=== PATIENT | male | born 1970 | race African-American/Black ===

== ENCOUNTER 2016-11-21 07:43 | Emergency (ER) | payer SELFPAY ==
[~2016-11-21] VITALS: Ht 175.3 cm; Wt 122.5 kg
[2016-11-21 07:54] VITALS: BP 176/82
--- NOTE | 2016-11-21 07:58 | PHYS DOC ---
Adult General Chief Complaint Chief Complaint: HAND PROBLEM HPI HPI Patient is a 46 year old male who presents with moderate left hand pain that began yesterday after he fell. Patient denies any loss of consciousness. Review of Systems Review of Systems Constitutional: Denies fever or chills [] Eyes: Denies change in visual acuity, redness, or eye pain [] Musculoskeletal: Left hand pain Integument: Denies rash or skin lesions [] Neurologic: Denies headache, focal weakness or sensory changes [] Endocrine: Denies polyuria or polydipsia [] Current Medications Current Medications Current Medications Medications (Trade) Dose Ordered Sig/Antonina Start Time Stop Time Status Last Admin Dose Admin Acetaminophen/ Hydrocodone Bitart (Lortab 5/325) 2 tab 1X ONCE 11/21/16 08:00 11/21/16 08:02 DC 11/21/16 08:13 2 TAB Naproxen (Naprosyn) 500 mg 1X STAT 11/21/16 08:02 11/21/16 08:03 DC 11/21/16 08:13 500 MG Allergies Allergies Allergies Coded Allergies Type Severity Reaction Last Updated Verified Penicillins Allergy Mild Swelling 11/21/16 Yes Physical Exam Physical Exam Constitutional: Well developed, well nourished, no acute distress, non-toxic appearance. [] Skin: Warm, dry, no erythema, no rash. [] Back: No tenderness, no CVA tenderness. [] Extremities: Left hand with no obvious deformity mild amount of soft tissue swelling noted along the left hand and wrist. Tenderness on palpation along the left first metacarpal. Limited range of motion to the left hand especially dorsiflexion. Full range of motion to the left fingers. Adequate ulna medial and radial sensation to the left hand. +2 left radial pulse. Cap refill less than 2 seconds the left upper extremity. Sensation intact to the left upper extremity. Neurologic: Alert and oriented X 3, normal motor function, normal sensory function, no focal deficits noted. [] Psychologic: Affect normal, judgement normal, mood normal. [] Current Patient Data Vital Signs Vital Signs Date Time Temp Pulse Resp B/P Pulse Ox O2 Delivery O2 Flow Rate FiO2 11/21/16 07:54 98.6 69 18 99 Room Air 98.6 EKG EKG [] Radiology/Procedures Radiology/Procedures [] Course & Med Decision Making Course & Med Decision Making Pertinent Labs and Imaging studies reviewed. (See chart for details) Patient is in the ED left hand pain after falling yesterday. Left hand x-rays interpreted by radiologist are negative for any acute findings. Patient probably sprained his left hand. Patient was placed in a thumb spica by the Ed RN, neurovascular exam done by me is normal. Cap refill less than 2 seconds. Patient was discharged with instructions to follow-up with orthopedic doctor. Ice elevation encouraged. Naproxen for pain. Dragon Disclaimer Dragon Disclaimer This electronic medical record was generated, in whole or in part, using a voice recognition dictation system. Departure Departure Impression: Primary Impression: Fall from standing Additional Impression: Sprain of left hand Disposition: HOME, SELF-CARE Condition: STABLE Referrals: ELTON IBRAHIM MD Follow-up with the provided orthopedic doctor in one week if pain continues Patient Instructions: Fall Prevention and Home Safety Additional Instructions: You were seen for left hand sprain after falling. Please ice and elevate the extremity. Wear the splint as tolerated. Follow-up with the provided orthopedic doctor in one week if pain continues. Take the prescribed medicines as needed for pain. Scripts Hydrocodone/Apap 5-325 (Brundidge 5-325 Tablet)1 Each Tablet1-2 Tab PO Q4-6HRS #10 TAB Prov:CHAIM MCCARTNEY APRN 11/21/16 Naproxen 500 Mg Tablet.dr1 Tab PO BID #60 TAB Ref 2 Prov:CHAIM MCCARTNEY APRN 11/21/16 Problem Qualifiers Primary Impression: Fall from standing Encounter type: initial encounter Qualified Code: W19.XXXA - Unspecified fall, initial encounter Additional Impression: Sprain of left hand Encounter type: initial encounter Qualified Code: S63.92XA - Sprain of unspecified part of left wrist and hand, initial encounter CHAIM MCCARTNEY APRN Nov 21, 2016 07:58
[2016-11-21] MEDS ORDERED: HYDROCODONE/APAP 5/325MG TABLET. PO ONE (08:00)
[2016-11-21] MEDS ORDERED: NAPROXEN 500 MG TABLET PO STA (08:02)
--- NOTE | 2016-11-21 08:17 | RAD ---
Three-view left hand radiographs 11/21/2016 Clinical history: Patient fell backwards while mowing grass onto the left hand with left hand pain and swelling. AP, lateral and oblique digital radiographs of the left hand were obtained. No fracture or dislocation of the left hand is seen. Mild to moderate degenerative changes are seen throughout the interphalangeal joints of the left hand. Moderate to severe degenerative changes are seen involving the first carpometacarpal joint. Impression: No acute fracture or dislocation of the left hand is seen.
[2016-11-21] MEDS ORDERED: NAPR500T8 PO (08:37)
[2016-11-21] MEDS ORDERED: HYDR-971 PO (08:37)
== END 2016-11-21 08:40 | disposition home or self-care (01) ==
LOC: ER 07:43
DX: S63.92XA Sprain of unspecified part of left wrist and hand, initial encounter (principal); Z88.0 Allergy status to penicillin; W18.39XA Other fall on same level, initial encounter; Y93.89 Activity, other specified; Y99.9 Unspecified external cause status; Y92.89 Other specified places as the place of occurrence of the external cause
CPT/HCPCS: 29125; 73130; 99284-25

== ENCOUNTER 2017-05-17 13:59 | Emergency (ER) | payer SELFPAY ==
[~2017-05-17] VITALS: Ht 175.3 cm; Wt 108.9 kg
[~2017-05-17 13:59] MED LIST: HYDR-971 PO; NAPR500T8 PO
[2017-05-17 14:09] VITALS: BP 163/104
--- NOTE | 2017-05-17 14:23 | PHYS DOC ---
Past Medical History Past Medical History: No Pertinent History Past Surgical History: No Surgical History Alcohol Use: None Drug Use: None Adult General Chief Complaint Chief Complaint: SHOULDER INJURY HPI HPI Patient is a 46 year old male presents emergency department stating that he fell from a rock yesterday from a standing position and landed on his left shoulder. He states that he is having left shoulder pain and discomfort as well as left upper back pain and discomfort. He denies any loss of consciousness however he does state that he has decreased range of motion of the left shoulder. Peripheral pulses are 2+ cap refill is less than 2 seconds. Patient with equal strength in sr. director noted bilaterally. Patient states that he has taken ibuprofen at 4:00 this morning. He had a pain patch with lidocaine placed on the area last night. Review of Systems Review of Systems Constitutional: Denies fever or chills [] Eyes: Denies change in visual acuity, redness, or eye pain [] HENT: Denies nasal congestion or sore throat [] Respiratory: Denies cough or shortness of breath [] Cardiovascular: No additional information not addressed in HPI [] GI: Denies abdominal pain, nausea, vomiting, bloody stools or diarrhea [] : Denies dysuria or hematuria [] Musculoskeletal: Left upper back pain. Left shoulder pain and discomfort Integument: Denies rash or skin lesions [] Neurologic: Denies headache, focal weakness or sensory changes [] Endocrine: Denies polyuria or polydipsia [] Current Medications Current Medications Current Medications Medications (Trade) Dose Ordered Sig/[facility] Start Time Stop Time Status Last Admin Dose Admin Cyclobenzaprine HCl (Flexeril) 10 mg 1X ONCE 05/17/17 14:30 05/17/17 14:31 DC 05/17/17 14:30 10 MG Ibuprofen (Motrin) 800 mg 1X ONCE 05/17/17 14:30 05/17/17 14:31 DC 05/17/17 14:30 800 MG Allergies Allergies Allergies Coded Allergies Type Severity Reaction Last Updated Verified Penicillins Allergy Mild Swelling 11/21/16 Yes Physical Exam Physical Exam Constitutional: Well developed, well nourished, no acute distress, non-toxic appearance. [] HENT: Normocephalic, atraumatic, bilateral external ears normal, oropharynx moist, no oral exudates, nose normal. [] Eyes: PERRLA, EOMI, conjunctiva normal, no discharge. [] Neck: Normal range of motion, no tenderness, supple, no stridor. [] Cardiovascular:Heart rate regular rhythm, no murmur [] Lungs & Thorax: Bilateral breath sounds clear to auscultation [] Abdomen: Bowel sounds normal, soft, no tenderness, no masses, no pulsatile masses. [] Skin: Warm, dry, no erythema, no rash. [] Back: No cervical spine, thoracic spine tenderness, no crepitus deformities or step-offs noted. Patient did have nerve tenderness on the left upper back area. Extremities: Left shoulder tenderness, no cyanosis, no clubbing, ROM intact, no edema. Decreased range of motion noted to the left arm and shoulder area. Peripheral pulses are 2+ cap refill brisk less than 2 seconds. Equal sr. director and strength noted bilaterally. Neurologic: Alert and oriented X 3, normal motor function, normal sensory function, no focal deficits noted. [] Psychologic: Affect normal, judgement normal, mood normal. [] Current Patient Data Vital Signs Vital Signs Date Time Temp Pulse Resp B/P (MAP) Pulse Ox O2 Delivery O2 Flow Rate FiO2 05/17/17 14:09 98.0 65 18 97 Room Air 98.0 EKG EKG [] Radiology/Procedures Radiology/Procedures [][facility] [address] [place] [address] IMAGING REPORT Signed PATIENT: CECILIA BRIDGES ACCOUNT: [id number] : 1970 LOCATION: ER AGE: 46 SEX: M EXAM [id number] STATUS: REG ER ORD. PHYSICIAN: TAO POST APRN REASON: fall pain to left shoulder PROCEDURE: HUMERUS LEFT; SHOULDER 2+V LEFT Left shoulder, 3 views, 05/17/2017: History: Fall, pain No fracture or dislocation is identified. There are mild sclerotic and cystic changes at rotator cuff insertion sites on the greater tuberosity on a degenerative basis. The periarticular soft tissues are unremarkable. IMPRESSION: No acute left shoulder abnormality is detected. Left humerus, 2 views, 05/17/2017: No fracture or dislocation is identified. IMPRESSION: No acute left humeral abnormality is detected. DICTATED and SIGNED BY: ELAINE RUSH MD DATE: 05/17/17 1544 CC: TAO POST APRN; NO PCP; NON,STAFF ~ Course & Med Decision Making Course & Med Decision Making Pertinent Labs and Imaging studies reviewed. (See chart for details) Patient provided with ibuprofen and Flexeril here in the emergency department. Patient does have at the bedside. X-rays negative per radiology. Patient will be discharged home with flexeril and naproxen. Recommended to use ice packs on 20 minutes and off 20 minutes several times a day. Flexeril will cause drowsiness do not take if you need to be alert and oriented. Followup with orthopedic or primary care provider in 3-5 days. Signs and symptoms to return to the emergency department has been provided. Patient agrees with discharge instructions, treatment regimen and followup recommendations. All questions and concerns have been answered at patients bedside. [] Dragon Disclaimer Dragon Disclaimer This electronic medical record was generated, in whole or in part, using a voice recognition dictation system. Departure Departure Impression: Primary Impression: Left shoulder pain Additional Impression: Upper back pain on left side Disposition: 01 HOME, SELF-CARE Condition: STABLE Referrals: NO PCP (PCP) Patient Instructions: Back Pain, Adult, [id number], Shoulder Pain, Easy-to- Read Additional Instructions: Activity as tolerated Medication as prescribed Flexeril will cause drowsiness do not take if you need to be alert and oriented. Ice packs on 20 minutes and off 20 minutes several times a day Followup with your orthopedic or primary care provider in 5-7 days Return to emergency department as needed for signs and symptoms that become worse. Scripts Naproxen (NAPROXEN) 500 Mg Tablet 1 TAB PO BID, #60 TAB Prov: TAO POST APRN 05/17/17 Cyclobenzaprine Hcl (CYCLOBENZAPRINE HCL) 10 Mg Tablet 1 TAB PO TID Y for MUSCLE SPASMS, #30 TAB Prov: TAO POST APRN 05/17/17 Problem Qualifiers Primary Impression: Left shoulder pain Chronicity: unspecified Qualified Codes: M25.512 - Pain in left shoulder TAO POST APRN May 17, 2017 14:23
[2017-05-17] MEDS ORDERED: IBUPROFEN 800 MG TABLET. PO ONE (14:30)
[2017-05-17] MEDS ORDERED: CYCLOBENZAPRINE 10 MG TABLET. PO ONE (14:30)
[2017-05-17] MEDS ORDERED: CYCL10TA2 PO (15:38)
[2017-05-17] MEDS ORDERED: NAPR500T4 PO (15:40)
--- NOTE | 2017-05-17 15:48 | RAD ---
Left shoulder, 3 views, 05/17/2017: History: Fall, pain No fracture or dislocation is identified. There are mild sclerotic and cystic changes at rotator cuff insertion sites on the greater tuberosity on a degenerative basis. The periarticular soft tissues are unremarkable. IMPRESSION: No acute left shoulder abnormality is detected. Left humerus, 2 views, 05/17/2017: No fracture or dislocation is identified. IMPRESSION: No acute left humeral abnormality is detected.
== END 2017-05-17 15:55 | disposition home or self-care (01) ==
LOC: ER 13:59
DX: M25.512 Pain in left shoulder (principal); M54.6 Pain in thoracic spine; Z88.0 Allergy status to penicillin; W18.39XA Other fall on same level, initial encounter; Y93.89 Activity, other specified; Y92.89 Other specified places as the place of occurrence of the external cause; Y99.8 Other external cause status
CPT/HCPCS: 73030; 73060; 99284

== ENCOUNTER 2019-04-18 12:39 | Emergency (ER) | payer SELFPAY ==
[~2019-04-18] VITALS: Ht 175.3 cm; Wt 120.7 kg
[~2019-04-18 12:39] MED LIST changes: +CYCL10TA2 PO; +HYDR-3164 PO; -HYDR-971 PO; +NAPR-514 PO
[2019-04-18 13:09] VITALS: BP 205/109
--- NOTE | 2019-04-18 13:28 | PHYS DOC ---
Past Medical History Past Medical History: No Pertinent History Past Surgical History: No Surgical History Alcohol Use: None Drug Use: None Adult General Chief Complaint Chief Complaint: SHOULDER INJURY HPI HPI Patient is a 48 year old male with no significant medical history who presents to the ED today complaining of 9 out of 10 right shoulder pain that began one and a half weeks ago while lawnmower when. Patient states the pain is constant and worse on range of motion but is relieved by raising the left upper extremity above his shoulder. He states the pain radiates to the right upper extremity with intermittent episodes of numbness and tingling to the right upper extremity. Review of Systems Review of Systems Constitutional: Denies fever or chills [] Musculoskeletal: Reports right shoulder pain Integument: Denies rash or skin lesions [] Neurologic: Denies headache, focal weakness or sensory changes [] All other systems were reviewed and found to be within normal limits, except as documented in this note. Allergies Allergies Allergies Coded Allergies Type Severity Reaction Last Updated Verified Penicillins Allergy Mild Swelling 11/21/16 Yes Physical Exam Physical Exam Constitutional: Well developed, well nourished, no acute distress, non-toxic appearance. [] Abdomen: Bowel sounds normal, soft, no tenderness, no masses, no pulsatile masses. [] Skin: Warm, dry, no erythema, no rash. [] Back: No tenderness, no CVA tenderness. [] Extremities: Right shoulder with no obvious deformity. No tenderness, full range of motion to the right shoulder. Adequate radial, medial, ulnar sensation to the right upper extremity. +2 right radial pulse. Cap refill less than 2 seconds the right fingers. Neurologic: Alert and oriented X 3, normal motor function, normal sensory function, no focal deficits noted. [] Psychologic: Affect normal, judgement normal, mood normal. [] Current Patient Data Vital Signs Vital Signs Date Time Temp Pulse Resp B/P (MAP) Pulse Ox O2 Delivery O2 Flow Rate FiO2 04/18/19 13:09 98.2 69 20 205/109 (141) 96 Room Air 98.2 EKG EKG [] Radiology/Procedures Radiology/Procedures []PROCEDURE: SHOULDER 2+V RIGHT Three-view right shoulder HISTORY: Right shoulder pain, no known injury. TECHNIQUE: Routine multiplanar sequences are obtained. FINDINGS: No evidence of acute fracture. No aggressive bone destruction. No dislocation. No significant soft tissue abnormality. IMPRESSION: No evidence of acute fracture or dislocation. Electronically signed by: Alek Maciel MD (04/18/2019 1:41 PM) [facility] DICTATED and SIGNED BY: ALEK MACIEL MD DATE: 04/18/19 8484 Course & Med Decision Making Course & Med Decision Making Pertinent Labs and Imaging studies reviewed. (See chart for details) This is a 48-year-old male patient presenting to the ED today with right shoul liz pain that began a week and a half ago while trimming bushes. Right shoulder x-rays interpreted by radiologist are negative for any acute findings. Ice elevation encouraged. Sling provided. Follow-up with orthopedic doctor in one week. Dragon Disclaimer Dragon Disclaimer This electronic medical record was generated, in whole or in part, using a voice recognition dictation system. Departure Departure Impression: Primary Impression: Right shoulder strain Disposition: 01 HOME, SELF-CARE Condition: STABLE Referrals: NO PCP (PCP) MAIRA CLAROS II, MD Follow-up in a week Patient Instructions: Shoulder Sprain Additional Instructions: You were seen for right shoulder pain, your right shoulder x-rays are negative for any acute findings. Take the prescribed medications as ordered. Follow-up with your own doctor or the provided orthopedic doctor in one week. Scripts Naproxen (NAPROXEN) 500 Mg Tablet.dr 1 TAB PO BID, #20 TAB 0 Refills Prov: CHAIM MCCARTNEY APRN 04/18/19 Cyclobenzaprine Hcl (CYCLOBENZAPRINE HCL) 10 Mg Tablet 1 TAB PO TID, #30 TAB Prov: CHAIM MCCARTNEY APRN 04/18/19 Hydrocodone/Apap 5-325 (NORCO 5-325 TABLET) 1 Each Tablet 1 TAB PO Q6HRS, #6 TAB Prov: CHAIM MCCARTNEY APRN 04/18/19 Gabapentin (GABAPENTIN ) 300 Mg Capsule 300 MG PO TID for NEUROGENIC PAIN, #30 CAP Prov: CHAIM MCCARTNEY APRN 04/18/19 Problem Qualifiers Primary Impression: Right shoulder strain Encounter type: initial encounter Qualified Codes: S46.911A - Strain of unspecified muscle, fascia and tendon at shoulder and upper arm level, right arm, initial encounter CHAIM MCCARTNEY APRN Apr 18, 2019 13:27
--- NOTE | 2019-04-18 13:44 | RAD ---
Three-view right shoulder HISTORY: Right shoulder pain, no known injury. TECHNIQUE: Routine multiplanar sequences are obtained. FINDINGS: No evidence of acute fracture. No aggressive bone destruction. No dislocation. No significant soft tissue abnormality. IMPRESSION: No evidence of acute fracture or dislocation. Electronically signed by: Alek Maciel MD (04/18/2019 1:41 PM) [facility]
[2019-04-18] MEDS ORDERED: NAPROXEN 500 MG TABLET PO STA (14:01)
[2019-04-18] MEDS ORDERED: GABA300C18 PO (14:07)
[2019-04-18] MEDS ORDERED: CYCL10TA2 PO (14:07)
[2019-04-18] MEDS ORDERED: HYDR-3164 PO (14:07)
[2019-04-18] MEDS ORDERED: NAPR500T8 PO (14:07)
[2019-04-18] MEDS ORDERED: CYCLOBENZAPRINE 10 MG TABLET. PO ONE (14:15)
[2019-04-18] MEDS ORDERED: HYDROcodone/APAP 5/325MG 1 TAB TABLET PO ONE (14:15)
== END 2019-04-18 14:22 | disposition home or self-care (01) ==
LOC: ER 12:39
DX: S46.911A Strain of unspecified muscle, fascia and tendon at shoulder and upper arm level, right arm, initial encounter (principal); Z88.0 Allergy status to penicillin; X58.XXXA Exposure to other specified factors, initial encounter; Y93.89 Activity, other specified; Y92.89 Other specified places as the place of occurrence of the external cause; Y99.8 Other external cause status
CPT/HCPCS: 73030; 99284

== ENCOUNTER 2019-07-06 14:25 | Emergency (ER) | payer SELFPAY ==
[~2019-07-06] VITALS: Ht 175.3 cm; Wt 117.0 kg
[~2019-07-06 14:25] MED LIST changes: +GABA300C18 PO
[2019-07-06 14:45] VITALS: BP 174/102
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
[2019-07-06] MEDS ORDERED: TETRACAINE 0.5% OPHTH SOLUTION 4ML BOTTLE. OS ONE (15:45)
[2019-07-06] MEDS ORDERED: FLUORESCEIN OPHTH TEST STRIP. OS ONE (15:45)
[2019-07-06] MEDS ORDERED: ERYT1OIN6 OP (16:36)
== END 2019-07-06 16:43 | disposition home or self-care (01) ==
LOC: ER 14:25
DX: S05.02XA Injury of conjunctiva and corneal abrasion without foreign body, left eye, initial encounter (principal); L53.8 Other specified erythematous conditions; Z88.0 Allergy status to penicillin; X58.XXXA Exposure to other specified factors, initial encounter; Y93.89 Activity, other specified; Y92.89 Other specified places as the place of occurrence of the external cause; Y99.8 Other external cause status
CPT/HCPCS: 99283